=== PATIENT | female | born 1980 | race American Indian/Alaskan Native ===

== ENCOUNTER 2016-07-05 19:54 | Emergency (ER) | payer MEDICAID ==
[2016-07-05 20:20] VITALS: BP 120/75
--- NOTE | 2016-07-09 15:52 | ED Elopement Review ---
ED Pt Elopement review - Call Back decision Pt Call Back Decision: No action required
== END 2016-07-05 20:10 | disposition left against medical advice (07) ==
LOC: ED 19:54
DX: O99.512 Diseases of the respiratory system complicating pregnancy, second trimester (principal); R07.9 Chest pain, unspecified; R05 Cough; Z3A.20 20 weeks gestation of pregnancy; Z53.21 Procedure and treatment not carried out due to patient leaving prior to being seen by health care provider
CPT/HCPCS: 93005; 93010